=== PATIENT | female | born 1990 | race Two or more races ===

== ENCOUNTER 2017-09-01 21:23 | Emergency (ER) | payer MEDICAID ==
[~2017-09-01] VITALS: Ht 152.4 cm; Wt 54.0 kg
[~2017-09-01 21:23] MED LIST: HYDR25TA6 PO; LISI-170 PO; LISI2.5T PO; OXCA300T3 PO; OXYCARBAZEPINE PO
[2017-09-01] MEDS ORDERED: PROMETHAZINE 25MG TABLET PO PRN (22:00)
[2017-09-01] MEDS ORDERED: ACETAMINOPHEN 500 MG TABLET PO ONE (22:00)
[2017-09-01] MEDS ORDERED: PROMETHAZINE 25 MG/ML, 1ML ONE (22:14)
[2017-09-01] MEDS ORDERED: ACETAMINOPHEN 500 MG TABLET ONE (22:15)
[2017-09-01 22:29] LABS: BASOPHILS # (AUTO) 0.04 x10^3/uL (0-0.1); BASOPHILS % (AUTO) 1 % (0-1); EOSINOPHILS # (AUTO) 0.16 x10^3/uL (0-0.4); EOSINOPHILS % (AUTO) 2 % (1-7); LYMPHOCYTES # (AUTO) 2.51 x10^3/uL (1-3.4); LYMPHOCYTES % (AUTO) 34 % (22-44); MD NO; MEAN CORPUSCULAR HEMOGLOBIN 28.2 pg (27.0-34.8); MEAN CORPUSCULAR HGB CONC 33.2 g/dL (32.4-35.8); MEAN CORPUSCULAR VOLUME 84.9 fL (80-100); MEAN PLATELET VOLUME 8.9 fL (7.4-10.4); MONOCYTES # (AUTO) 0.67 x10^3/uL (0.2-0.8); MONOCYTES % (AUTO) 9 % (2-9); NEUTROPHILS # (AUTO) 4.08 x10^3/uL (1.8-6.8); NEUTROPHILS % (AUTO) 55 % (42-75); PLATELET COUNT 329 x10^3/uL (130-400); RED BLOOD COUNT 4.31 x10^6/uL (3.82-5.3); RED CELL DISTRIBUTION WIDTH 15.1 % (9.6-15.2)
[2017-09-01 22:39] LABS: ANION GAP 7 mmol/L (5-15); CALCIUM 8.4 mg/dL (8.5-10.1); CHLORIDE 110 mmol/L (98-107)
[2017-09-01 23:09] VITALS: BP 162/106
== END 2017-09-01 23:22 | disposition home or self-care (01) ==
LOC: ED 23:00
DX: R42 Dizziness and giddiness (principal); F31.9 Bipolar disorder, unspecified; I10 Essential (primary) hypertension
CPT/HCPCS: 36415; 80048; 84703; 85025; 93005; 99285; Q0169

== ENCOUNTER 2018-12-03 21:31 | Emergency (ER) | payer MEDICAID ==
[~2018-12-03] VITALS: Ht 152.4 cm; Wt 53.3 kg
--- NOTE | 2018-12-03 22:29 | NUR ---
PT HERE FOR VAGINAL ITCHING, PAINFUL URINATION WITH INCREASED FREQUENCY X 2 DAYS. SYMPTOMS WORSE TODAY. UA SENT TO LAB. PT RESTING WITH NO NEEDS CALL LIGHT IN REACH
[2018-12-03 22:36] LABS: HCG UR SG 1.012 (1.003-1.030); MICROSCOPIC AUTO
[2018-12-03 22:37] LABS: CULTURE INDICATED? YES
[2018-12-03 22:48] LABS: CLUE CELLS NONE SEEN (NONE SEEN); WET PREP WBCS FEW (FEW)
[2018-12-03 23:00] VITALS: BP 145/95
[2018-12-03] MEDS ORDERED: CEFDINIR 300 MG CAPSULE ONE (23:20)
--- NOTE | 2018-12-03 23:23 | NUR ---
Patient given discharge instructions and they have confirmed that they understand the instructions. Patient ambulatory with steady gait.
[2018-12-03] MEDS ORDERED: CEFDINIR 300 MG CAPSULE PO ONE (23:30)
== END 2018-12-03 23:26 | disposition home or self-care (01) ==
LOC: ED 22:05
DX: N39.0 Urinary tract infection, site not specified (principal); N76.0 Acute vaginitis
CPT/HCPCS: 81001; 81025; 87086; 87210; 87491; 87591; 87808; 99283

== ENCOUNTER 2019-01-09 13:32 | Emergency (ER) | payer MEDICAID ==
[~2019-01-09] VITALS: Ht 152.4 cm; Wt 50.2 kg
[2019-01-09] MEDS ORDERED: ONDANSETRON ODT 4 MG PO ONE (15:30)
[2019-01-09 15:36] LABS: HCG UR SG 1.018 (1.003-1.030); MICROSCOPIC AUTO
[2019-01-09 15:38] LABS: CULTURE INDICATED? NO
[2019-01-09 15:54] LABS: BASOPHILS # (AUTO) 0.06 x10^3/uL (0-0.1); BASOPHILS % (AUTO) 1 % (0-1); EOSINOPHILS # (AUTO) 0.03 x10^3/uL (0-0.4); EOSINOPHILS % (AUTO) 0 % (1-7); LYMPHOCYTES # (AUTO) 1.23 x10^3/uL (1-3.4); LYMPHOCYTES % (AUTO) 16 % (22-44); MD NO; MEAN CORPUSCULAR HEMOGLOBIN 30.2 pg (27.0-34.8); MEAN CORPUSCULAR HGB CONC 32.8 g/dL (32.4-35.8); MEAN CORPUSCULAR VOLUME 91.9 fL (80-100); MEAN PLATELET VOLUME 9.1 fL (7.4-10.4); MONOCYTES # (AUTO) 0.41 x10^3/uL (0.2-0.8); MONOCYTES % (AUTO) 5 % (2-9); NEUTROPHILS # (AUTO) 6.23 x10^3/uL (1.8-6.8); NEUTROPHILS % (AUTO) 78 % (42-75); PLATELET COUNT 331 x10^3/uL (130-400); RED BLOOD COUNT 5.08 x10^6/uL (3.82-5.3); RED CELL DISTRIBUTION WIDTH 15.1 % (9.6-15.2)
--- NOTE | 2019-01-09 16:01 | NUR ---
TO ROOM 24
[2019-01-09 16:03] LABS: ALBUMIN 4.7 g/dL (3.4-5.0); ANION GAP 9 mmol/L (5-15); CALCIUM 9.1 mg/dL (8.5-10.1); CHLORIDE 106 mmol/L (98-107)
[2019-01-09 16:09] LABS: ALANINE AMINOTRANSFERASE 22 U/L (12-78); ALKALINE PHOSPHATASE 66 U/L (45-117); BILIRUBIN,TOTAL 0.5 mg/dL (0.2-1.0); CREATININE 0.66 mg/dL (0.55-1.02); TOTAL PROTEIN 8.4 g/dL (6.4-8.2)
[2019-01-09] MEDS ORDERED: ONDANSETRON ODT 4 MG ONE (16:09)
--- NOTE | 2019-01-09 16:15 | NUR ---
PT TO ED FOR N/V SINCE LAST NIGHT AFTER DRINKING. PT STATES UNABLE TO KEEP WATER OR FOOD DOWN AT THIS TIME. PT CONNECTED TO MONIOTRS. VSS. PIT ORDERS RECEIVED. PT MEDICATED PER SEP. LABS DRAWN. AWAITING RESULTS.
[2019-01-09] MEDS ORDERED: POTASSIUM CHLORIDE 20 MEQ PACKET PO ONE (16:30)
--- NOTE | 2019-01-09 17:24 | NUR ---
Aranza RN: po soda ,water, and crakers given. patietn has been able to keep down water
[2019-01-09] MEDS ORDERED: POTASSIUM CHLORIDE 20 MEQ PACKET ONE (17:40)
--- NOTE | 2019-01-09 17:46 | NUR ---
Patient reports feeling better; adminstered PO K+ PER MD order. Patient tolerated well. VSS. Pt reports no needs at this time.
[2019-01-09 18:49] VITALS: BP 163/103
== END 2019-01-09 19:05 | disposition home or self-care (01) ==
LOC: ED 16:15
DX: K29.20 Alcoholic gastritis without bleeding (principal); F10.10 Alcohol abuse, uncomplicated; R11.2 Nausea with vomiting, unspecified; E87.6 Hypokalemia; F31.9 Bipolar disorder, unspecified; I10 Essential (primary) hypertension
CPT/HCPCS: 36415; 80053; 81001; 81025; 84703; 85025; 99283; Q0162